=== PATIENT | male | born 1950 | race Caucasian/White ===

== ENCOUNTER → 2017-10-04 15:37 | Outpatient (CLI) | payer MEDICARE, OTHER, SELFPAY | PROVIDERS: Visit Provider Physician Assistant | DX: L03.90 Cellulitis, unspecified (principal) | CPT/HCPCS: 87070; 87077; 87147; 87186; 87205 ==

== ENCOUNTER → 2019-03-25 13:28 | Outpatient (CLI) | payer MEDICARE, OTHER, SELFPAY | PROVIDERS: PCP Family Medicine; Visit Provider Family Medicine | DX: M81.0 Age-related osteoporosis without current pathological fracture (principal); Z82.62 Family history of osteoporosis | CPT/HCPCS: 77080; 77081 ==

== ENCOUNTER → 2020-06-21 08:59 | Outpatient (CLI) | payer MEDICARE, OTHER, SELFPAY ==
[2020-06-21 09:42] LABS: Add Manual Diff / Slide Review NO; Basophils Absolute Auto 0 /uL (0-100); Basophils Percent Auto 0.6 % (0-2); Eosinophils Absolute Auto 300 /uL (0-450); Eosinophils Percent Auto 5.4 % (2-4); Hematocrit 47.4 % (41-53); Hemoglobin 16.1 g/dL (13.5-17.5); Lymphocytes Absolute Auto 1100 /uL (1100-4500); Lymphocytes Percent Auto 19.3 % (25-40); Mean Corpuscular Hemoglobin 28.4 PG (26-34); Mean Corpuscular Volume 83.4 fL (80-100); Monocytes Absolute Auto 500 /uL (0-900); Monocytes Percent Auto 7.9 % (3-14); Neutrophils Absolute Auto 3800 /uL (1500-7000); Neutrophils Percent Auto 66.8 % (50-75); Platelet Count 233 X10^3/uL (150-400); Red Blood Cell Count 5.69 X10^6/uL (4.5-5.9); Red Cell Distribution Width 14.1 % (11.6-14.8); White Blood Cell Count 5.7 X10^3/uL (4.5-11.0)
[2020-06-21 10:19] LABS: Alanine Aminotransferase 30 IU/L (<50); Albumin 4.1 g/dL (3.5-5.0); Albumin Globulin Ratio 1.3 (1.0-2.8); Alkaline Phosphatase 79 U/L (38-126); Aspartate Aminotransferase 30 IU/L (17-59); BUN Creatinine Ratio 15.5 (6-22); Bilirubin Total 0.6 mg/dL (0.2-1.3); Blood Urea Nitrogen 18 mg/dL (9-20); Calcium 9.2 mg/dL (8.4-10.2); Carbon Dioxide 23 mmol/L (22-32); Chloride 106 mmol/L (98-107); Cholesterol 160 mg/dL (140-199); Estimated Glomerular Filt Rate > 60.0 mL/min (>60); Globulin 3.2 g/dL (1.7-4.1); Glucose 106 mg/dL (80-110); HDL Cholesterol 46 mg/dL (40-60); HEMOLYSIS < 15 (0-50); LDL Cholesterol Calculated 89 mg/dL (<100); Potassium 4.1 mmol/L (3.4-5.1); Sodium 139 mmol/L (137-145); Total Protein 7.3 g/dL (6.3-8.2); Triglycerides 126 mg/dL (35-150)
[2020-06-22 17:37] LABS: Hep C Virus Ab w/Reflex Quant NEGATIVE s/c (NEGATIVE)
== END ==
PROVIDERS: PCP Internal Medicine; Referring Provider Internal Medicine; Visit Provider Internal Medicine
DX: Z00.00 Encounter for general adult medical examination without abnormal findings (principal); K21.00 Gastro-esophageal reflux disease with esophagitis, without bleeding; E78.2 Mixed hyperlipidemia; M81.0 Age-related osteoporosis without current pathological fracture; F32.9 Major depressive disorder, single episode, unspecified
CPT/HCPCS: 36415; 80053; 80061; 85025; 86803

== ENCOUNTER → 2021-05-17 08:42 | Outpatient (CLI) | payer MEDICARE, OTHER, SELFPAY ==
[2021-05-17 10:23] LABS: Hemoglobin A1C% w Est Avg Glu 5.8 % (4.0-6.0)
[2021-05-17 10:28] LABS: Alanine Aminotransferase 34 IU/L (<50); Albumin 4.4 g/dL (3.5-5.0); Albumin Globulin Ratio 1.5 (1.0-2.8); Alkaline Phosphatase 78 U/L (38-126); Aspartate Aminotransferase 32 IU/L (17-59); BUN Creatinine Ratio 14.7 (6-22); Bilirubin Total 0.6 mg/dL (0.2-1.3); Blood Urea Nitrogen 15 mg/dL (9-20); Calcium 9.3 mg/dL (8.4-10.2); Carbon Dioxide 25 mmol/L (22-32); Chloride 106 mmol/L (98-107); Cholesterol 172 mg/dL (140-199); Estimated Glomerular Filt Rate > 60.0 mL/min (>60); Glucose 98 mg/dL (80-110); HDL Cholesterol 49 mg/dL (40-60); HEMOLYSIS < 15 (0-50); LDL Cholesterol Calculated 94 mg/dL (<100); Potassium 4.4 mmol/L (3.4-5.1); Sodium 139 mmol/L (137-145); Total Protein 7.4 g/dL (6.3-8.2); Triglycerides 147 mg/dL (35-150)
[2021-05-17 10:39] LABS: LDL Cholesterol Direct 95 mg/dL (<100)
[2021-05-17 10:58] LABS: Thyroid Stimulating Hormone 1.16 uIU/mL (0.47-4.68)
[2021-05-18 14:02] LABS: PSA Free % 15.8 % (.); PSA, Total 3.1 ng/mL (0.0-4.0)
== END ==
PROVIDERS: Family Medicine
DX: R73.9 Hyperglycemia, unspecified (principal); E78.5 Hyperlipidemia, unspecified; R97.20 Elevated prostate specific antigen [PSA]
CPT/HCPCS: 36415; 80053; 80061; 83036; 83721; 84153; 84154; 84443

== ENCOUNTER → 2022-09-14 09:07 | Outpatient (CLI) | payer MEDICARE, OTHER, SELFPAY ==
[2022-09-14 10:39] LABS: Add Manual Diff / Slide Review NO; Basophils Absolute Auto 0 /uL (0-100); Basophils Percent Auto 0.5 % (0-2); Eosinophils Absolute Auto 400 /uL (0-450); Eosinophils Percent Auto 7.9 % (2-4); Hematocrit 43.7 % (41-53); Hemoglobin 14.9 g/dL (13.5-17.5); Lymphocytes Absolute Auto 1100 /uL (1100-4500); Mean Corpuscular Hemoglobin 26.9 PG (26-34); Mean Corpuscular Volume 79.2 fL (80-100); Monocytes Absolute Auto 600 /uL (0-900); Monocytes Percent Auto 10.6 % (3-14); Neutrophils Absolute Auto 3300 /uL (1500-7000); Platelet Count 225 X10^3/uL (150-400); Red Blood Cell Count 5.52 X10^6/uL (4.5-5.9); White Blood Cell Count 5.5 X10^3/uL (4.5-11.0)
[2022-09-14 10:48] LABS: Alanine Aminotransferase 27 IU/L (<50); Albumin 3.9 g/dL (3.5-5.0); Albumin Globulin Ratio 1.3 (1.0-2.8); Alkaline Phosphatase 84 U/L (38-126); Aspartate Aminotransferase 27 IU/L (17-59); BUN Creatinine Ratio 16.5 (6-22); Bilirubin Total 0.4 mg/dL (0.2-1.3); Blood Urea Nitrogen 16 mg/dL (9-20); Calcium 8.8 mg/dL (8.4-10.2); Carbon Dioxide 22 mmol/L (22-32); Chloride 106 mmol/L (98-107); Cholesterol 158 mg/dL (140-199); Estimated Glomerular Filt Rate > 60 mL/min (>60); Globulin 2.9 g/dL (1.7-4.1); Glucose 98 mg/dL (80-110); HDL Cholesterol 50 mg/dL (40-60); HEMOLYSIS < 15 (0-50); LDL Cholesterol Calculated 82 mg/dL (<100); Potassium 4.3 mmol/L (3.4-5.1); Sodium 137 mmol/L (137-145); Total Protein 6.8 g/dL (6.3-8.2); Triglycerides 128 mg/dL (35-150)
[2022-09-14 10:59] LABS: LDL Cholesterol Direct 87 mg/dL (<100)
[2022-09-14 11:14] LABS: Prostate Specific Antigen Scrn 2.48 ng/mL (0.1-4.0)
[2022-09-14 17:54] LABS: Hep C Virus Ab w/Reflex Quant NEGATIVE s/c (NEGATIVE)
== END ==
PROVIDERS: PCP Family Medicine; Referring Provider Family Medicine; Visit Provider Family Medicine
DX: I10 Essential (primary) hypertension (principal); Z12.5 Encounter for screening for malignant neoplasm of prostate; E78.5 Hyperlipidemia, unspecified; Z11.59 Encounter for screening for other viral diseases
CPT/HCPCS: 36415; 80053; 80061; 83721; 84443; 85025; 86803; G0103

== ENCOUNTER → 2023-10-02 09:46 | Outpatient (CLI) | payer MEDICARE, SELFPAY ==
[2023-10-02 11:30] LABS: Add Manual Diff / Slide Review NO; Basophils Absolute Auto 0 /uL (0-100); Basophils Percent Auto 0.6 % (0-2); Eosinophils Absolute Auto 400 /uL (0-450); Hematocrit 38.9 % (41-53); Hemoglobin 12.6 g/dL (13.5-17.5); Lymphocytes Absolute Auto 1100 /uL (1100-4500); Lymphocytes Percent Auto 19.7 % (25-40); Mean Corpuscular HGB Conc 32.4 % (30-36); Mean Corpuscular Hemoglobin 23.1 PG (26-34); Mean Corpuscular Volume 71.3 fL (80-100); Monocytes Absolute Auto 600 /uL (0-900); Monocytes Percent Auto 9.6 % (3-14); Neutrophils Absolute Auto 3600 /uL (1500-7000); Neutrophils Percent Auto 63.1 % (50-75); Platelet Count 243 X10^3/uL (150-400); Red Blood Cell Count 5.46 X10^6/uL (4.5-5.9); Red Cell Distribution Width 16.1 % (11.6-14.8); White Blood Cell Count 5.8 X10^3/uL (4.5-11.0)
[2023-10-02 11:39] LABS: Alanine Aminotransferase 20 IU/L (<50); Albumin 4.2 g/dL (3.5-5.0); Albumin Globulin Ratio 1.6 (1.0-2.8); Alkaline Phosphatase 79 U/L (38-126); Aspartate Aminotransferase 28 IU/L (17-59); BUN Creatinine Ratio 14.2 (6-22); Bilirubin Total 0.5 mg/dL (0.2-1.3); Blood Urea Nitrogen 16 mg/dL (9-20); Calcium 9.2 mg/dL (8.4-10.2); Carbon Dioxide 25 mmol/L (22-32); Chloride 107 mmol/L (98-107); Cholesterol 156 mg/dL (140-199); Estimated Glomerular Filt Rate > 60 mL/min (>60); Globulin 2.7 g/dL (1.7-4.1); Glucose 94 mg/dL (80-110); HDL Cholesterol 52 mg/dL (40-60); HEMOLYSIS < 15 (0-50); LDL Cholesterol Calculated 80 mg/dL (<100); Potassium 4.8 mmol/L (3.4-5.1); Sodium 138 mmol/L (137-145); Total Protein 6.9 g/dL (6.3-8.2); Triglycerides 118 mg/dL (35-150)
[2023-10-02 12:09] LABS: Prostate Specific Antigen 2.71 ng/mL (0.10-4.00)
[2023-10-02 12:38] LABS: Hemoglobin A1C% w Est Avg Glu 6.1 % (4.0-6.0)
== END ==
PROVIDERS: PCP Family Medicine; Referring Provider Family Medicine; Visit Provider Family Medicine
DX: R73.9 Hyperglycemia, unspecified (principal); E78.5 Hyperlipidemia, unspecified; Z12.11 Encounter for screening for malignant neoplasm of colon
CPT/HCPCS: 36415; 80053; 80061; 83036; 84153; 85025

== ENCOUNTER 2024-02-05 09:46 | Day surgery (SDC) | payer MEDICARE, SELFPAY ==
--- NOTE | 2024-02-05 | PATH_ITS ---
[facility] Accession Number: [id number] No. of containers..02 Tissue . 01 Material submitted: . PART A: colon - COLON, CECAL POLYP PART B: colon - COLON, SPLENIC FLEXURE POLYP . 01 Diagnosis: Part A: COLON, CECAL POLYP: Colonic mucosa with benign lymphoid aggregate. No neoplasm identified. . Specimen Comments: Additional step sections were examined. . Part B: COLON, SPLENIC FLEXURE POLYP: Tubular adenoma. [facility] 02/10/2024 1339 Local . 01 Electronically signed: . Chester Hough MD, Pathologist NPI- [id number] . 01 Gross description: . Part A: CECAL POLYP: Received in formalin is 1 fragment(s) of barry, soft tissue measuring 0.2 x 0.2 x 0.2 cm submitted entirely in 1 cassette(s) . Part B: SPLENIC POLYP: Received in formalin is 1 fragment(s) of barry, soft tissue measuring 0.3 x 0.3 x 0.2 cm submitted entirely in 1 cassette(s) /[facility] 02/10/2024 1339 Local . 01 Pathologist provided ICD-10: D12.3, K63.89 . 01 CPT . 965287, [id number] Specimen Comment: A courtesy copy of this report has been sent to [phone] Performed at: [address] [id number], [place], [place] [id number] MD Chester Hough MD Phone: [phone]
[2024-02-05 10:07] VITALS: BP 138/90; PULSE 81; RESP 18; TEMP 36.2; O2SAT 98
--- NOTE | 2024-02-05 10:09 | PM.OP.COLON ---
Operative Date/Time/Diagnoses Date of procedure: 02/05/24 Pre-op diagnosis: See indication and findings Procedure & Clinicians Study performed: Colonoscopy Indications: Personal history of colon polyps Surgeon: Victor Hugo Mccall Procedure Notes Procedure in detail: After informed consent was obtained the patient was placed in left lateral decubitus position. The video colonoscope was introduced the rectum slowly advanced cecum. On slow withdrawal mucosa was carefully examined. The scope was removed. The patient tolerated procedure well. Blood loss none Complications none Sedation mac Findings 1. 4 mm polyp in the cecum Jumbo biopsy removed completely 2. 6 mm polyp at the splenic flexure/50 cm Jumbo biopsy removed completely 3. Otherwise negative colonoscopy to cecum Patient should have follow-up colonoscopy within 5 years. We will be back in touch with him regarding pathology
--- NOTE | 2024-02-05 10:10 | PM.HP.1 ---
History of Present Illness History of Present Illness Date Patient Seen: 02/05/24 Chief complaint: SDC Narrative: Personal history of colon polyps. Last colonoscopy 5 years ago PFSH Social History Smoking Status: Never smoker alcohol intake: current Meds Home Medications and Allergies Home Medications Medication Instructions Recorded Confirmed Type alendronate 70 mg tablet 70 mg PO [id number] ##0 05/08/17 10/04/17 History mometasone-formoterol HFA 100 1 inh INH ##0 05/08/17 10/04/17 History mcg-5 mcg/actuation aerosol inhaler (Dulera) omeprazole 20 mg tablet,delayed 20 mg PO QDAY ##0 05/08/17 10/04/17 History release simvastatin 40 mg tablet 40 mg PO QDAY ##0 05/08/17 10/04/17 History tamsulosin 0.4 mg capsule (Flomax) 0.4 mg PO QDAY ##0 05/08/17 10/04/17 History trazodone 50 mg tablet 50 - 100 mg PO HSP PRN ##0 05/08/17 10/04/17 History finasteride 5 mg tablet 5 mg PO DAILY 10/04/17 10/04/17 History Allergies Allergy/AdvReac Type Severity Reaction Status Date / Time oxycodone Allergy hyperactivi Verified 10/04/17 14:05 ty No Known Allergies Allergy Uncoded 06/05/17 12:03 Exam Vital Signs (past 8 hours): - 02/05/24 10:07 Temperature 97.1 F L Pulse Rate 81 Respiratory Rate 18 Blood Pressure 138/90 Pulse Oximetry 98 Oxygen Delivery Method Room Air Oxygen Delivery Method Room Air Narrative Exam Narrative: Oropharynx free of lesions Chest clear to auscultation percussion Cardiac exam reveals no S3 or murmur Assessment & Plan Assessment & Plan narrative: Personal history of colon polyps need for follow-up colonoscopy at a 5 year interval. Risks, benefits, alternatives have been explained. Time-Based Coding :: [TOTAL MINUTES] spent with patient and on the chart (including review of chart, obtaining history, exam, reviewing outside data, placing orders, documenting exam and treatment plan, and counseling patient) on [DATE].
[2024-02-05 10:37] VITALS: BP 100/67; PULSE 71; RESP 18; TEMP 36.9; O2SAT 94
[2024-02-05 10:40] VITALS: BP 95/67; PULSE 68; RESP 18; TEMP 36.9; O2SAT 94
[2024-02-05 10:46] VITALS: BP 115/76; PULSE 87; RESP 15; TEMP 37; O2SAT 97
[2024-02-05 10:55] VITALS: BP 117/78; PULSE 81; RESP 18; O2SAT 97
== END 2024-02-05 11:11 | disposition home or self-care (01) ==
PROVIDERS: PCP Family Medicine; Referring Provider Internal Medicine Gastroenterology; Visit Provider Internal Medicine Gastroenterology
PROC: 0DJD8ZZ Inspection of Lower Intestinal Tract, Via Natural or Artificial Opening Endoscopic (ICD-10-PCS; CPT 45378; principal; 2024-02-05 11:00)
DX: Z12.11 Encounter for screening for malignant neoplasm of colon (principal); Z86.0100 Personal history of colon polyps, unspecified; K63.5 Polyp of colon; D12.3 Benign neoplasm of transverse colon
CPT/HCPCS: 45380; J2704

== ENCOUNTER → 2025-01-06 08:01 | Outpatient (CLI) | payer MEDICARE, SELFPAY ==
[2025-01-06 08:37] LABS: Add Manual Diff / Slide Review NO; Hematocrit 46.3 % (41-53); Hemoglobin 15.8 g/dL (13.5-17.5); Lymphocytes Absolute Auto 1100 /uL (1100-4500); Mean Corpuscular HGB Conc 34.1 % (30-36); Mean Corpuscular Hemoglobin 28.7 PG (26-34); Mean Corpuscular Volume 84.3 fL (80-100); Platelet Count 237 X10^3/uL (150-400)
[2025-01-06 08:45] LABS: Hemoglobin A1C% w Est Avg Glu 5.6 % (4.0-6.0)
[2025-01-06 08:59] LABS: Alanine Aminotransferase 27 IU/L (<50); Albumin 4.2 g/dL (3.5-5.0); Albumin Globulin Ratio 1.4 (1.0-2.8); Alkaline Phosphatase 80 U/L (38-126); Blood Urea Nitrogen 19 mg/dL (9-20); Calcium 9.1 mg/dL (8.4-10.2); Carbon Dioxide 23 mmol/L (22-32); Chloride 106 mmol/L (98-107); Cholesterol 181 mg/dL (140-199); Estimated Glomerular Filt Rate > 60 mL/min (>60); Globulin 3.0 g/dL (1.7-4.1); Glucose 106 mg/dL (70-99); HDL Cholesterol 58 mg/dL (40-60); HEMOLYSIS < 15 (0-50); Potassium 4.2 mmol/L (3.4-5.1); Sodium 139 mmol/L (137-145); Total Protein 7.2 g/dL (6.3-8.2); Triglycerides 106 mg/dL (35-150)
[2025-01-06 09:14] LABS: Free T4, Direct Thyroxine 1.00 ng/dL (0.78-2.19)
[2025-01-06 09:28] LABS: Thyroid Stimulating Hormone 1.79 uIU/mL (0.47-4.68)
[2025-01-06 09:29] LABS: Prostate Specific Antigen 2.73 ng/mL (0.10-4.00)
== END ==
PROVIDERS: PCP Family Medicine; Referring Provider Family Medicine; Visit Provider Family Medicine
DX: Z12.5 Encounter for screening for malignant neoplasm of prostate (principal); E78.5 Hyperlipidemia, unspecified; R73.9 Hyperglycemia, unspecified
CPT/HCPCS: 36415; 80053; 80061; 83036; 84153; 84439; 84443; 85025